=== PATIENT | female | born 1960 | race Caucasian/White ===

== ENCOUNTER → 2016-11-07 | Outpatient (CLI) | payer OTHER ==
--- NOTE | 2016-11-07 13:32 | Diagnostic Imaging Report ---
PROCEDURE: MR imaging of the brain without contrast. TECHNIQUE: Multiplanar, multisequence MR imaging of the brain was performed without contrast. INDICATION: Headache which have worsened over approximately four weeks. FINDINGS: Ventricles and sulci are within normal limits for patient's age. There is an area of increased T2 signal in the pineal region which measures approximately 0.8 x 0.6 cm. Contrast was not administered on this examination which limits evaluation of this area. Otherwise, there is no abnormal signal seen within the oscar or white matter. The visualized paranasal sinuses are clear, however, there is small amount of fluid present within right mastoid air cells. There is no restricted diffusion to indicate an infarct. IMPRESSION: No definite acute intracranial abnormalities identified. There is fluid present within right mastoid air cells. There is a subcentimeter area of increased T2 signal in the pineal region. This may represent pineal cyst although this is incompletely evaluated on the current study. Pre-and postcontrast imaging is suggested for further assessment. Dictated by: Dictated on workstation # [id number]
== END ==
LOC: RAD 11:18
PROVIDERS: ATTEND Family Medicine
DX: R51 Headache (principal)
CPT/HCPCS: 70551

== ENCOUNTER → 2016-11-14 | Outpatient (CLI) | payer OTHER ==
[~2016-11-14] MED LIST: GADOBUTROL 10 MMOL/10 ML (GADAVIST) VIAL IV ONE
--- OUTSIDE RECORDS SUMMARY | 2016-11-14 09:40 | XMS REPORT | Continuity of Care Document ---
Author Author [facility] Organization [facility] Address Unknown Phone Unavailable Care Team Providers Care Coil Binder Name Role Phone Cali Tapia PCP [phone] Source Comments Some departments are not documenting in the electronic medical record. If you do not see the information that you expected, contact Release of Information in the Health Information Management department at [phone] for further assistance in locating additional records.[facility] Active Allergies and Adverse Reactions No Known Allergies Current Medications Prescription Sig. Disp. Refills Start End Date Status Date albuterol (VENTOLIN HFA, Inhale 2 Puffs by mouth Active PROAIR HFA) 90 twice daily. mcg/actuation inhaler fluticasone-salmeterol Inhale 1 Puff by mouth Active (ADVAIR DISKUS) 250-50 every 12 hours. mcg inhalation disk esomeprazole DR(+) Take 40 mg by mouth every Active (NEXIUM) 40 mg capsule morning. sertraline (ZOLOFT) 100 Take 100 mg by mouth Active mg tablet daily. aspirin/acetaminophen/caf Take 1 Tab by mouth daily Active feine(+) (EXCEDRIN as needed. MIGRAINE) 250/250/65 mg tab naproxen sodium(+) Take 440 mg by mouth at Active (ALEVE) 220 mg tablet bedtime as needed. ibuprofen (MOTRIN) 600 mg Take 1 Tab by mouth every 30 Tab 1 12/29/19 Active tablet 6 hours as needed for 14 Pain. mupirocin (BACTROBAN) 2 % Apply to affected area 15 g 0 01/26/20 Active topical ointment 2-3 times daily. 14 naproxen (NAPROSYN) 500 Take 1 Tab by mouth twice 60 Tab 1 01/26/20 Active mg tablet daily with meals. 14 Active Problems Problem Noted Date Ovarian cyst, bilateral 03/03/2014 Pelvic mass 12/26/2013 Social History Tobacco Use Types Packs/Day Years Used Date Never Smoker Smokeless Tobacco: Never Used Alcohol Use Drinks/Week oz/Week Comments Yes 2 drinks/month Last Filed Vital Signs Vital Sign Reading Time Taken Blood Pressure 151/62 02/15/2014 3:27 PM CDT Pulse 80 02/15/2014 3:27 PM CDT Temperature 37.3 C (99.1 F) 02/15/2014 3:27 PM CDT Respiratory Rate 18 02/15/2014 3:27 PM CDT Height 1.626 m (5' 4") 02/15/2014 3:27 PM CDT Weight 99.156 kg (218 lb 9.6 oz) 02/15/2014 3:27 PM CDT Body Mass Index 37.5 02/15/2014 3:27 PM CDT Oxygen Saturation 100% 02/15/2014 3:27 PM CDT Plan of Care Health Maintenance Due Date Last Done Comments Physical (Comprehensive) 1966 Exam Pertussis Vaccine 1970 Tetanus Vaccine 02/08/1976 Breast Cancer Screening 1999 Colorectal Cancer 2009 Screening Influenza Vaccine 05/01/2016 Cervical Cancer Screening 12/13/2016 12/13/2013 Results from Last 3 Months Not on file
[2016-11-14 10:16] LABS: CREATININE SERUM 1.05 MG/DL (0.60-1.30)
--- NOTE | 2016-11-14 16:44 | Diagnostic Imaging Report ---
PROCEDURE: MR imaging of the brain with and without contrast. TECHNIQUE: Multiplanar, multisequence MR imaging of the brain was performed with and without contrast. INDICATION: Pineal mass. FINDINGS: The recent MRI brain exam performed on 11/07/2016 noted a small 0.8 x 0.6 cm area of increased signal within the pineal gland on the T2 axial series. That finding is again evident on this study. This area does not enhance with contrast. 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 Even so, it may prove worthwhile to have a short-term (6-month) follow-up MRI brain exam for further evaluation; however if the patient's neurological symptoms worsen, then interval imaging should be performed. The remainder of the brain is unchanged. There is no other abnormal enhancement to suggest a neoplastic or infectious process. There is no abnormal signal arising from the brain on the diffusion series to indicate an area of acute ischemia either. IMPRESSION: 1. The small area of altered signal within the pineal gland seen previously is again evident. 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 Recommendations as above. 2. There is no other abnormal enhancement to suggest a neoplastic or infectious process. 3. These results were discussed with Dr. Lorenzo Franco. Dictated by: Dictated on workstation # [id number]
== END ==
LOC: RAD 09:36
PROVIDERS: ATTEND Family Medicine
DX: G44.201 Tension-type headache, unspecified, intractable (principal)
CPT/HCPCS: 36415; 70553; 82565; 84520

== ENCOUNTER → 2017-05-29 | Outpatient (CLI) | payer OTHER ==
[~2017-05-29] MED LIST changes: +CATHETER FLUSH 10 ML SYR IV PRN; -GADOBUTROL 10 MMOL/10 ML (GADAVIST) VIAL IV ONE; +IOHEXOL 350 MG/ML 150 ML (OMNIPAQUE 350) VIAL IV ONE; +NS 100 ML (IVPB) BAG IV ONE
[2017-05-29 11:30] LABS: ANION GAP 15 MMOL/L (5-14); BLOOD UREA NITROGEN 20 MG/DL (7-18); BUN/CREATININE RATIO 22; CALCIUM 10.4 MG/DL (8.5-10.1); CARBON DIOXIDE 22 MMOL/L (21-32); CHLORIDE 97 MMOL/L (98-107); CREATININE SERUM 0.92 MG/DL (0.60-1.30); GFR ESTIMATED > 60; GLUCOSE 317 MG/DL (70-105); POTASSIUM 4.2 MMOL/L (3.6-5.0); SODIUM 134 MMOL/L (135-145)
--- NOTE | 2017-05-29 13:27 | Diagnostic Imaging Report ---
PROCEDURE: CT angiography of the chest with contrast. TECHNIQUE: Multiple contiguous axial images were obtained through the chest after uneventful bolus administration of intravenous contrast. Reconstructed CTA MIP acquisitions were also performed. INDICATION: Shortness of breath x1 week. FINDINGS: There is good aeration of both lungs. No evidence of air trapping. There are no infiltrates. No pleural effusions or pericardial effusion. There are no masses. Following IV contrast injection there is good opacification of the aorta and pulmonary arteries. Aorta shows no evidence of aneurysm or dissection. Pulmonary arteries well opacified with no filling defects to indicate pulmonary emboli. No mediastinal or hilar adenopathy of pathologic size. Mild degenerative changes noted of the thoracic spine. IMPRESSION: 1. No evidence of pulmonary emboli. 2. The lungs are well-aerated and clear. 3. No findings to indicate congestive failure. Report was called to Dr. Franco by sundar at 1:26 PM. Dictated by: Dictated on workstation # [id number]
== END ==
LOC: RAD 10:56
PROVIDERS: ATTEND Family Medicine
DX: R06.02 Shortness of breath (principal); R61 Generalized hyperhidrosis
CPT/HCPCS: 36415; 71275; 80048

== ENCOUNTER → 2017-06-01 | Outpatient (CLI) | payer OTHER ==
[~2017-06-01] MED LIST changes: -CATHETER FLUSH 10 ML SYR IV PRN; +GADOBUTROL 10 MMOL/10 ML (GADAVIST) VIAL IV ONE; -IOHEXOL 350 MG/ML 150 ML (OMNIPAQUE 350) VIAL IV ONE; -NS 100 ML (IVPB) BAG IV ONE
--- NOTE | 2017-06-01 19:44 | Diagnostic Imaging Report ---
PROCEDURE: MR imaging of the brain with and without contrast. INDICATION: History of pineal mass, followup. No new symptoms or complaints. TECHNIQUE: Multiplanar, multisequence MR imaging of the brain was performed with and without contrast. CORRELATION STUDY: 11/14/2016 FINDINGS: Ventricles and sulci appearing unchanged and unremarkable. Relatively normal oscar white signal differentiation. No significant white matter signal abnormalities. There are no restricted areas of diffusion. No midline shift or evidence for mass effect. There is again noted a slightly bilobed appearance about the pineal gland. There is predominantly hyperintense T2 signal intensity remaining centrally. It currently measures 10 mm AP x 4 mm transverse. Previously measuring 9 x 5 mm, respectively. This does abut the region of the superior colliculi but without significant mass effect or deviation. Postcontrast imaging demonstrates no abnormal areas of intracranial enhancement. Craniocervical junction unremarkable. Sella unremarkable. Normal expected intracranial flow voids. There is noted some significant motion artifact on some of the imaging sequences. IMPRESSION: Overall relatively stable appearance on MRI examination. 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 Dictated by: Dictated on workstation # [id number]
== END ==
LOC: RAD 14:39
PROVIDERS: ATTEND Family Medicine
DX: G93.0 Cerebral cysts (principal)
CPT/HCPCS: 70553

== ENCOUNTER → 2017-10-30 | Outpatient (CLI) | payer OTHER ==
--- NOTE | 2017-10-30 11:39 | Diagnostic Imaging Report ---
PROCEDURE: MR imaging cervical spine without contrast. TECHNIQUE: Multiplanar, multisequence MR imaging of the cervical spine was performed without contrast. INDICATION: Neck pain and right shoulder pain. COMPARISON: No prior studies are available for comparison. FINDINGS: Curvature of the cervical spine is normal. There is minimal retrolisthesis of C3 on C4 and C4 on C5. The vertebral body marrow signal intensity is normal. No geographic marrow lesion is identified. There is loss of height and signal intensity involving all cervical intervertebral discs, compatible with degenerative disc disease. Marginal osteophyte formation is also present. The cervical spinal cord demonstrates normal homogeneous signal intensity and normal morphology. C2-C3: No central canal or neuroforaminal stenosis is identified. C3-C4: Broad-based disc/osteophyte complex is present which produces some indentation upon the ventral thecal sac. Central canal remains patent. Uncovertebral joint degenerative change does result in moderate left-sided neuroforaminal stenosis. There is very mild right-sided neuroforaminal narrowing. C4-C5: Broad-based disc/osteophyte complex and uncovertebral joint degenerative change does result in fairly significant bilateral neuroforaminal stenosis. There is mild central canal stenosis. C5-C6: Prominent broad-based disc/osteophyte complex indents the ventral thecal sac and produces moderate central canal stenosis. There is severe right and [id number]-[id number] left neuroforaminal stenosis. C6-C7: Broad-based disc/osteophyte complex flattens the ventral thecal sac. Ujyt-mf-uospojdx central canal stenosis is seen. There is fairly significant bilateral neuroforaminal stenosis by uncovertebral joint degenerative change. C7-T1: There is a prominent left-sided uncovertebral joint osteophyte resulting in significant left neuroforaminal stenosis. Milder degenerative change on the right is noted with no significant neuroforaminal stenosis seen. The central canal is patent. The paraspinous tissues are unremarkable. IMPRESSION: Significant multilevel cervical spondylosis with multilevel central canal and neuroforaminal stenosis, described level by level above. No acute feature is identified. Dictated by: Dictated on workstation # [id number]
== END ==
LOC: RAD 10:03
PROVIDERS: ATTEND Orthopaedic Surgery
DX: M48.02 Spinal stenosis, cervical region (principal); M47.22 Other spondylosis with radiculopathy, cervical region
CPT/HCPCS: 72141

== ENCOUNTER 2017-11-04 05:32 | Outpatient (CLI) | payer OTHER ==
[~2017-11-04] VITALS: Ht 165.1 cm; Wt 95.3 kg
[2017-11-04] MEDS ORDERED: NF-ESOM40C PO (11:38)
[2017-11-04] MEDS ORDERED: METF500T8 PO (11:38)
[2017-11-04] MEDS ORDERED: ESCI20TA PO (11:38)
[2017-11-04] MEDS ORDERED: MULT-974 PO (11:38)
[2017-11-04] MEDS ORDERED: CETI10TA20 PO (11:38)
[2017-11-04] MEDS ORDERED: FENO135C PO (11:38)
[2017-11-04] MEDS ORDERED: DAPA10TA PO (11:38)
== END 2017-11-04 11:25 | disposition home or self-care (01) ==
LOC: PREOP 05:32
PROVIDERS: ATTEND Orthopaedic Surgery
DX: Z01.818 Encounter for other preprocedural examination (principal); Z11.2 Encounter for screening for other bacterial diseases; G56.21 Lesion of ulnar nerve, right upper limb
CPT/HCPCS: 87081

== ENCOUNTER 2017-11-13 06:00 | Day surgery (SDC) | payer OTHER ==
--- NOTE | 2017-11-02 14:50 | HISTORY AND PHYSICAL ---
DATE OF SERVICE: This is a preadmission physical for 11/13/2017 for right cubital tunnel release. HISTORY OF PRESENT ILLNESS: The patient is a 57-year-old right hand dominant female with complaints of right hand pain and paresthesias. She reports medial elbow pain, which radiates into her small and ring fingers. She reports that this is worse at night. She denies any specific trauma. She reports this has been activity limiting. She reports pain when she rests her elbow on hard surfaces. REVIEW OF SYSTEMS: No chest pain, no shortness of breath. No dysuria. PAST MEDICAL HISTORY: Mcmullen's palsy, diabetes type 2, elevated triglycerides, asthma, reflux. PAST SURGICAL HISTORY: Right toe and hysterectomy. FAMILY HISTORY: Significant for COPD, diabetes. PRIMARY CARE PROVIDER: Dr. Franco. MEDICATIONS: Nexium, Trilipix, metformin, Lexapro, Zyrtec and Farxiga. ALLERGIES: No known drug allergies. SOCIAL HISTORY: The patient does not smoke or use alcohol. PHYSICAL EXAMINATION: GENERAL: The patient is well developed, well nourished, in no acute distress. HEENT: Normocephalic, atraumatic. Pupils are equal, round, reactive to light. Oropharynx is clear. NECK: Supple with no lymphadenopathy. LUNGS: Clear to auscultation bilaterally. HEART: Regular rate and rhythm. ABDOMEN: Soft, nontender, nondistended. EXTREMITIES: Right elbow demonstrates a positive Tinel's at the cubital tunnel, which reproduces her symptoms. She has a positive elbow flexion test. She has decreased sensation in an ulnar distribution with slight weakness with finger abduction. NEUROLOGIC: No gross atrophy is noted in her intrinsics. IMPRESSION: Right cubital tunnel syndrome. PLAN: Right cubital tunnel release. The risks, benefits, options, ramifications and recovery were discussed at length with the patient. She understands and wishes to proceed. Job ID: [id number] DocumentID: [id number] Dictated Date: 11/02/2017 13:59:18 Home Improvement Advisor Date: 11/02/2017 14:38:42 Dictated By: BIRGIT KENNEY MD
[~2017-11-13] VITALS: Ht 165.1 cm; Wt 95.3 kg
[~2017-11-13 06:00] MED LIST changes: +CETI10TA20 PO; +DAPA10TA PO; +ESCI20TA PO; +FENO135C PO; -GADOBUTROL 10 MMOL/10 ML (GADAVIST) VIAL IV ONE; +METF500T8 PO; +MULT-974 PO; +NF-ESOM40C PO
[2017-11-13 06:05] VITALS: BP 149/86
[2017-11-13] MEDS ORDERED: ceFAZolin INJECTION 1,000 MG in NS (IVPB) 100 ML IV ONE (06:15)
[2017-11-13] MEDS ORDERED: BUPIVACAINE 0.5% 30 ML (SENSORCAINE) VIAL ONE (06:18)
[2017-11-13] MEDS ORDERED: LIDOCAINE 1% INJ 20 ML (XYLOCAINE) VIAL ONE (06:18)
[2017-11-13] MEDS ORDERED: FAMOTIDINE 20MG/2ML IV (PEPCID) ONE (06:27)
--- NOTE | 2017-11-13 06:29 | Progress Note-Pre Operative ---
Pre-Operative Progress Note H&P Reviewed The H&P was reviewed, patient examined and no changes noted. Date Seen by Provider: Nov 13, 2017 Time Seen by Provider: 06:25 Date H&P Reviewed: Nov 13, 2017 Time H&P Reviewed: 06:25 Pre-Operative Diagnosis: right cubital tunnel syndrome BIRGIT KENNEY MD Nov 13, 2017 06:29
[2017-11-13] MEDS: LACTATED RINGERS 1,000 ML IV PRN ×2 (06:30→07:34)
[2017-11-13] MEDS ORDERED: FAMOTIDINE 20MG/2ML IV (PEPCID) IVP ONE (06:30)
--- NOTE | 2017-11-13 06:30 | Progress Note-Post Operative ---
Post-Operative Progess Note Surgeon (s)/Clinical Nursing Assistant (s) Surgeon BIRGIT KENNEY MD Clinical Nursing Assistant: Carson Gatica Pre-Operative Diagnosis right cubital tunnel syndrome Post-Operative Diagnosis right cubital tunnel syndrome Procedure & Operative Findings Date of Procedure 11/13/17 Procedure Performed/Findings right cubital tunnel release Anesthesia Type GETA Estimated Blood Loss Estimated blood loss (mL): minimal Specimens/Packing Specimens Removed none Packing: none BIRGIT KENNEY MD Nov 13, 2017 06:30
[2017-11-13] MEDS ORDERED: LIDOCAINE PF 2% 5 ML (XYLOCAINE) VIAL ONE (06:32)
[2017-11-13] MEDS ORDERED: ONDANSETRON 4 MG/2 ML (SDV) Z0FRAN ONE (06:32)
[2017-11-13] MEDS ORDERED: proPOfol 200 MG/20 ML (DIPRIVAN) VIAL IV ONE (06:32)
[2017-11-13] MEDS ORDERED: MIDAZOLAM 2 MG/2 ML (VERSED) VIAL ONE (06:33)
[2017-11-13] MEDS ORDERED: fentaNYL INJECTION 100 MCG/2 ML AMP ONE (06:33)
[2017-11-13] MEDS ORDERED: SEVOFLURANE (ULTANE) 15 ML INHAL SOLN ONE (06:35)
[2017-11-13] MEDS ORDERED: HYDROcodone/APAP 7.5 MG/325 MG (LORTAB, LORCET PLUS) TABLET PO PRN (06:45)
[2017-11-13] MEDS ORDERED: morphine INJ 10 MG/ML 1ML (SYR OR VIAL) ONE (07:57)
[2017-11-13] MEDS ORDERED: MEPERIDINE (DEMEROL) INJ 50 MG/ML IVP PRN (08:00)
[2017-11-13] MEDS ORDERED: ONDANSETRON 4 MG/2 ML (SDV) Z0FRAN IVP PRN (08:00)
[2017-11-13] MEDS ORDERED: HYDROmorphone (DILAUDID) 2 MG/ML VIAL IVP PRN (08:00)
[2017-11-13] MEDS: morphine INJ 10 MG/ML 1ML (SYR OR VIAL) IVP PRN ×2 (08:01→08:10)
[2017-11-13 08:35] VITALS: BP 163/88
[2017-11-13 08:36] VITALS: BP 163/88
[2017-11-13 09:05] VITALS: BP 143/75
[2017-11-13 09:35] VITALS: BP 145/77
[2017-11-13] MEDS ORDERED: HYDR-3816 PO (09:46)
--- NOTE | 2017-11-13 11:32 | OPERATIVE REPORT ---
DATE OF SERVICE: 11/13/2017 PREOPERATIVE DIAGNOSIS: Right cubital tunnel syndrome. POSTOPERATIVE DIAGNOSIS: Right cubital tunnel syndrome. PROCEDURES: Right cubital tunnel release. SURGEON: Dr. Crawford. OPTICAL INSTRUMENT ASSEMBLER: MICKEY Deal, who assisted throughout the procedure and closed the incision. ANESTHESIA: General endotracheal by Steve Baeza CRNA. TOURNIQUET TIME: 11 minutes at 250 mmHg. ESTIMATED BLOOD LOSS: Minimal. DRAINS: None. COMPLICATIONS: None. POSTOPERATIVE PLAN: Routine protocol. The patient was transported to the recovery room awake and in stable condition. STATEMENT OF MEDICAL NECESSITY: The patient is a 57-year-old right-hand dominant female with complaints of right medial elbow pain as well as paresthesias into her ring and small fingers. She had a positive Tinel's at the cubital tunnel with a positive elbow flexion test. She reported functional impairment and interference with activities of daily living and therefore elected to proceed with surgical intervention. DESCRIPTION OF PROCEDURE: After risks and benefits of procedure were discussed and questions were answered, an informed consent was signed and placed on chart. The operative site was confirmed preoperative holding area initialed by the surgeon. The patient was then transported to the operating room and after adequate level of general endotracheal anesthetic was obtained, a timeout was called confirming the operative site. The right upper extremity was prepped and draped in the usual sterile fashion with the arm elevated, tourniquet inflated to 250 mmHg. An L-shaped incision was made with apex posterior to the medial epicondyle. The underlying soft tissues were carefully dissected. Hemostasis was obtained with cautery. The ulnar nerve was identified proximal to the medial epicondyle and dissected free 2.9 cm proximally. This was then dissected through the cubital tunnel and into the flexor/pronator mass. The nerve was carefully protected throughout the procedure and intact at the conclusion of the procedure. There was a bulbous fusiform swelling just proximal to the medial epicondyle with thinning through the cubital tunnel consistent with entrapment. The nerve, however, was intact. The elbow was taken through range of motion. No subluxation or translation was noted. The tourniquet was deflated for a total tourniquet time of 11 minutes. Pressure was used for hemostasis. Wound was copiously irrigated. A 2-0 Vicryl was used to reapproximate subcutaneous tissue and skin was closed with 4-0 nylon in a running alternating horizontal mattress fashion. Incision was infiltrated with plain Marcaine. A soft dressing was applied. The patient was transported to the recovery room awake and in stable condition. Job ID: [id number] DocumentID: [id number] Dictated Date: 11/13/2017 07:33:31 Automobile Radio Repairer Date: 11/13/2017 11:32:32 Dictated By: BIRGIT CRAWFORD MD
== END 2017-11-13 10:15 | disposition home or self-care (01) ==
LOC: SDC 06:00
PROVIDERS: ATTEND Orthopaedic Surgery
DX: G56.21 Lesion of ulnar nerve, right upper limb (principal); E11.9 Type 2 diabetes mellitus without complications; J45.909 Unspecified asthma, uncomplicated; K21.9 Gastro-esophageal reflux disease without esophagitis; E78.1 Pure hyperglyceridemia; G51.0 Bell's palsy; Z79.84 Long term (current) use of oral hypoglycemic drugs; Z79.899 Other long term (current) drug therapy
CPT/HCPCS: 82962

== ENCOUNTER → 2019-05-26 | Outpatient (CLI) | payer OTHER ==
[~2019-05-26] MED LIST changes: +HYDR-3816 PO
[2019-05-26 09:18] LABS: BASOPHILS % (AUTO) 1 % (0-10); EOSINOPHILS # (AUTO) 0.1 10^3/uL (0.0-0.3); EOSINOPHILS % (AUTO) 3 % (0-10); HEMATOCRIT 38 % (35-52); HEMOGLOBIN 12.9 G/DL (11.5-16.0); LYMPHOCYTES # (AUTO) 1.7 X 10^3 (1.0-4.0); LYMPHOCYTES % (AUTO) 30 % (12-44); MEAN CORPUSCULAR HEMOGLOBIN 28 PG (25-34); MEAN CORPUSCULAR HGB CONC 34 G/DL (32-36); MEAN CORPUSCULAR VOLUME 83 FL (80-99); MEAN PLATELET VOLUME 9.2 FL (7.4-10.4); MONOCYTES # (AUTO) 0.5 X 10^3 (0.0-1.0); MONOCYTES % (AUTO) 9 % (0-12); NEUTROPHILS # (AUTO) 3.2 X 10^3 (1.8-7.8); NEUTROPHILS % (AUTO) 58 % (42-75); PLATELET COUNT 272 10^3/uL (130-400); RED CELL DISTRIBUTION WIDTH 14.7 % (10.0-14.5); WHITE BLOOD COUNT 5.5 10^3/uL (4.3-11.0)
[2019-05-26 09:38] LABS: ALANINE AMINOTRANSFERASE 61 U/L (0-55); ALBUMIN 4.4 GM/DL (3.2-4.5); ALKALINE PHOSPHATASE 81 U/L (40-136); BILIRUBIN,TOTAL 0.6 MG/DL (0.1-1.0); BUN/CREATININE RATIO 10; CALCIUM 9.7 MG/DL (8.5-10.1); CARBON DIOXIDE 23 MMOL/L (21-32); CHLORIDE 102 MMOL/L (98-107); CHOLESTEROL 283 MG/DL (< 200); CREATININE SERUM 0.84 MG/DL (0.60-1.30); GFR ESTIMATED > 60; GLUCOSE 319 MG/DL (70-105); HDL CHOLESTEROL 29 MG/DL (40-60); SODIUM 137 MMOL/L (135-145); TOTAL PROTEIN 7.4 GM/DL (6.4-8.2); TRIGLYCERIDES 1549 MG/DL (<150)
[2019-05-26 21:31] LABS: HEPATITIS C ANTIBODY C Non-Reactive (Non-Reactive)
== END ==
LOC: LAB 09:02
PROVIDERS: ATTEND Family Medicine
DX: Z00.00 Encounter for general adult medical examination without abnormal findings (principal); Z11.59 Encounter for screening for other viral diseases; E11.9 Type 2 diabetes mellitus without complications; E78.5 Hyperlipidemia, unspecified
CPT/HCPCS: 36415; 80053; 80061; 83036; 85025; 86803

== ENCOUNTER → 2019-05-30 | Outpatient (CLI) | payer OTHER ==
--- NOTE | 2019-05-31 13:21 | Diagnostic Imaging Report ---
EXAMINATION: Digital mammogram bilateral screening. The current study was also evaluated with a Computer Aided Detection (CAD) system. 3-D tomosynthesis was also performed and reviewed. INDICATION: Screening. This study was compared to the prior exams of 06/15/2014 and 02/04/2013. At this time, there are no current complaints. FINDINGS: The fibroglandular tissue in both breasts is heterogeneously dense. This does limit the sensitivity of this exam. Overall, there does not appear to have been any significant change when compared to the prior study. No primary or secondary sign of malignancy is noted. 3D tomographic images fail to show any sign of malignancy. IMPRESSION: 1. There is no evidence for malignancy. 2. The patient should have her annual bilateral screening mammogram on schedule in May of 2020. ACR BI-RADS Category 1: Negative. Result letter will be mailed to the patient. Note: At least 10% of breast cancer is not imaged by mammography. Dictated by: Dictated on workstation # [id number]
== END ==
LOC: RAD 08:40
PROVIDERS: ATTEND Family Medicine
DX: Z12.31 Encounter for screening mammogram for malignant neoplasm of breast (principal)
CPT/HCPCS: 77067

== ENCOUNTER → 2020-03-27 | Outpatient (CLI) | payer OTHER ==
[~2020-03-27] MED LIST changes: -CETI10TA20 PO; +CETI10TA21 PO; +HYDR-34 PO; -HYDR-3816 PO; +METF-865 PO; -METF500T8 PO
== END ==
LOC: LABNPT 06:28
PROVIDERS: ATTEND Family Medicine
DX: R51 Headache (principal); R05 Cough; J02.9 Acute pharyngitis, unspecified; Z20.828 Contact with and (suspected) exposure to other viral communicable diseases
CPT/HCPCS: 87635

== ENCOUNTER → 2020-06-22 | Outpatient (CLI) | payer OTHER ==
[~2020-06-22] MED LIST changes: -CETI10TA21 PO; +CETI10TA49 PO
[2020-06-22 09:19] LABS: BASOPHILS # (AUTO) 0.1 10^3/uL (0.0-0.1); BASOPHILS % (AUTO) 1 % (0-10); EOSINOPHILS # (AUTO) 0.4 10^3/uL (0.0-0.3); EOSINOPHILS % (AUTO) 7 % (0-10); HEMATOCRIT 38 % (35-52); HEMOGLOBIN 11.7 g/dL (11.5-16.0); LYMPHOCYTES # (AUTO) 1.8 10^3/uL (1.0-4.0); LYMPHOCYTES % (AUTO) 32 % (12-44); MEAN CORPUSCULAR HEMOGLOBIN 23 pg (25-34); MEAN CORPUSCULAR HGB CONC 31 g/dL (32-36); MEAN CORPUSCULAR VOLUME 77 fL (80-99); MEAN PLATELET VOLUME 9.1 fL (9.0-12.2); MONOCYTES # (AUTO) 0.4 10^3/uL (0.0-1.0); MONOCYTES % (AUTO) 7 % (0-12); NEUTROPHILS % (AUTO) 52 % (42-75); PLATELET COUNT 355 10^3/uL (130-400); WHITE BLOOD COUNT 5.7 10^3/uL (4.3-11.0)
[2020-06-22 09:51] LABS: ALANINE AMINOTRANSFERASE 45 U/L (0-55); ALBUMIN 4.4 GM/DL (3.2-4.5); ALKALINE PHOSPHATASE 70 U/L (40-136); BILIRUBIN,TOTAL 0.4 MG/DL (0.1-1.0); BUN/CREATININE RATIO 15; CALCIUM 9.7 MG/DL (8.5-10.1); CARBON DIOXIDE 23 MMOL/L (21-32); CHLORIDE 100 MMOL/L (98-107); CHOLESTEROL 236 MG/DL (< 200); GFR ESTIMATED > 60; GLUCOSE 276 MG/DL (70-105); HDL CHOLESTEROL 27 MG/DL (40-60); POTASSIUM 3.9 MMOL/L (3.6-5.0); SODIUM 138 MMOL/L (135-145); TOTAL PROTEIN 7.6 GM/DL (6.4-8.2); TRIGLYCERIDES 1320 MG/DL (<150)
== END ==
LOC: LAB 09:06
PROVIDERS: ATTEND Family Medicine
DX: Z12.31 Encounter for screening mammogram for malignant neoplasm of breast (principal)
CPT/HCPCS: 36415; 80053; 80061; 83036; 84436; 84443; 84480; 85025

== ENCOUNTER → 2020-06-26 | Outpatient (CLI) | payer OTHER ==
--- NOTE | 2020-06-27 09:24 | Diagnostic Imaging Report ---
INDICATION: Routine screening. Comparison is made with prior mammogram 05/30/2019 and 06/15/2014. 2-D and 3-D bilateral screening mammography was performed with CAD. Scattered fibroglandular densities are identified bilaterally. Benign calcifications are noted. No spiculated mass or malignant appearing microcalcifications are seen. Axillae are unremarkable. IMPRESSION: BI-RADS Category 2 No mammographic features suspicious for malignancy are identified. ACR BI-RADS Category 2: Benign findings. Result letter will be mailed to the patient. Note: At least 10% of breast cancer is not imaged by mammography. Dictated by: Dictated on workstation # [id number]
== END ==
LOC: RAD 15:30
PROVIDERS: ATTEND Family Medicine
DX: Z12.31 Encounter for screening mammogram for malignant neoplasm of breast (principal)
CPT/HCPCS: 77063; 77067

== ENCOUNTER → 2021-11-06 | Outpatient (CLI) | payer OTHER ==
--- NOTE | 2021-11-06 10:31 | Diagnostic Imaging Report ---
PROCEDURE: US right lower extremity venous. TECHNIQUE: Multiple real-time grayscale images were obtained over the right lower extremity in various projections. Additional spectral analysis and color Doppler duplex images were also obtained. INDICATION: Right leg pain. There is no evidence of right lower extremity DVT. Right lower extremity deep venous system shows normal compressibility with normal response to augmentation and Valsalva. No fluid collection or mass is detected. IMPRESSION: No evidence of right lower extremity DVT. Dictated by: Dictated on workstation # [id number]
== END ==
LOC: RAD 09:50
PROVIDERS: ATTEND Family Medicine
DX: M79.604 Pain in right leg (principal)